=== PATIENT | male | born 1985 | race American Indian/Alaskan Native ===

== ENCOUNTER 2016-08-02 10:22 | Emergency (ER) | payer OTHER ==
[2016-08-02] MEDS ORDERED: ZOFRAN ONE (10:35)
[2016-08-02] MEDS ORDERED: MORPHINE ONE (10:35)
[2016-08-02] MEDS ORDERED: MORPHINE IV ONE (10:44)
[2016-08-02] MEDS ORDERED: NACL 0.9% 1000 ML 2,000 ML IV ONE (10:45)
[2016-08-02] MEDS ORDERED: DILAUDID IV ONE ×2 (10:52→12:50)
[2016-08-02] MEDS ORDERED: ZOFRAN IV ONE (10:52)
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
[2016-08-02] MEDS ORDERED: NACL 0.9% 1000 ML 1,000 ML IV ONE (10:57)
[2016-08-02 11:19] LABS: Basophils % (Auto) 0.7 % (0.0-1.8); Eosinophils % (Auto) 0.9 % (0.0-4.3); Hematocrit 36.8 % (35.5-45.6); Hemoglobin 12.9 gm/dl (11.8-15.2); Mean Corpuscular HGB Conc 35 % (32-34); Mean Corpuscular Hemoglobin 32 pg (28-32); Mean Corpuscular Volume 90 fl (84-94); Platelet Count 210 K/mm3 (140-440); Red Blood Count 4.09 M/mm3 (3.65-5.03); Red Cell Distribution Width 14.1 % (13.2-15.2); White Blood Count 9.4 K/mm3 (4.5-11.0)
[2016-08-02 11:22] LABS: INR 1.3 (0.87-1.13)
[2016-08-02 11:31] LABS: Alanine Aminotransferase 12 units/L (7-56); Albumin/Globulin Ratio 1.5 %; Alkaline Phosphatase 56 units/L (35-129); Anion Gap 19 mmol/L; BUN/Creatinine Ratio 7.27; Blood Urea Nitrogen 8 mg/dL (9-20); Calcium 8.4 mg/dL (8.4-10.2); Carbon Dioxide 23 mmol/L (22-30); Chloride 100.4 mmol/L (98-107); Glucose 90 mg/dL (75-100); Potassium 3.7 mmol/L (3.6-5.0); Sodium 139 mmol/L (137-145); Total Protein 6.7 g/dL (6.3-8.2)
[2016-08-02] MEDS ORDERED: BOOSTRIX IM ONE (12:02)
[2016-08-02] MEDS ORDERED: ceFAZolin 2 GM in NACL 0.9% 100 ML IV ONE (12:02)
[2016-08-02] MEDS ORDERED: TENIVAC IM ONE (12:08)
[2016-08-02 14:07] VITALS: BP 122/86
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
== END 2016-08-02 15:00 | disposition home or self-care (01) ==
LOC: ED 10:22
DX: S81.802A Unspecified open wound, left lower leg, initial encounter (principal); W34.00XA Accidental discharge from unspecified firearms or gun, initial encounter; Y93.9 Activity, unspecified; Y92.9 Unspecified place or not applicable; Y99.9 Unspecified external cause status
CPT/HCPCS: 36415; 73562; 80053; 85025; 85610; 85730; 90471; 90715; 96361; 96365; 96375; 96376; 99284; J0690; J1170; J2270; J2405; J7030; 90714